=== PATIENT | male | born 1955 | race Caucasian/White ===

== ENCOUNTER 2018-08-18 16:03 | Emergency (ER) | payer OTHER ==
--- NOTE | 2018-08-18 16:45 | EDPHY ---
H & P Time Seen by Provider: 08/18/18 16:22 HPI/ROS: HPI Head injury. 63-year-old male by private vehicle. This patient was walking on a sidewalk. He tripped, fell forward and struck his left brow ridge on the pavement. He sustained a contusion over his left eye and involving his left brow ridge as well as 2 lacerations 1 over the eyebrow and 1 just above the eyebrow. No loss of consciousness. He has not been confused. No nausea or vomiting. No neck pain. Denies any other complaints. No loss of sensation or weakness in his extremities. No change in vision. No anticoagulation. He does take a daily aspirin. ROS: Constitutional: No fever, no chills. No weakness. Eyes: No discharge. No changes in vision. Respiratory: No cough. No shortness of breath. Cardiac: No chest pain, no palpitations. Gastrointestinal: No abdominal pain, no vomiting, no diarrhea. Musculoskeletal: No back pain. No neck pain. No extremity pain. Skin: No rashes. As above Neurological: No headache. No focal weakness or altered sensation. Past medical history: Hyperlipidemia. Social history: Nonsmoker. Here by himself. No alcohol. Physical Exam: General Appearance: Alert, no distress. This patient is responding to questions appropriately and in full sentences. This patient appears well- hydrated and well-nourished. Head: Normocephalic atraumatic except for a large egg sized hematoma involving the left upper lid and left brow ridge. There is a linear, non gaping laceration measuring approximately 2 cm running parallel with an inside the left eyebrow. There is a smaller 1.5 cm non gaping but somewhat macerated laceration just above the left mid eyebrow. No bony deformity noted on palpation. Face: Facial bones are stable on palpation. As above. Eyes: Pupils equal and round and reactive to light, no pallor or injection. No lid erythema or edema. ENT, Mouth: Mucous membranes moist. Dentition is intact. No malocclusion of the jaw. No tongue lacerations or abrasions. Pharynx is clear. The bilateral nasal canals are clear. No septal hematoma. Respiratory: There are no retractions, lungs are clear to auscultation with good air movement bilaterally. Chest wall is stable to AP and lateral palpation. Cardiovascular: Regular rate and rhythm. No murmur. Gastrointestinal: Abdomen is soft and nontender, no masses, bowel sounds normal. Neurological: Motor sensory function is intact. Cranial nerves are normal. Cerebellar function intact. Skin: Warm and dry, no rashes. No lacerations, abrasions or contusions. Musculoskeletal: Neck is supple and nontender. The trachea is midline. No midline cervical, thoracic, lumbar or sacral tenderness on palpation. No flank tenderness on palpation. Extremities are symmetrical, full range of motion. All joints in the bilateral upper and bilateral lower extremities range without pain or impingement. No tenderness on palpation of the long bones in the bilateral upper and bilateral lower extremities. Psychiatric: No agitation. No depression. Database: EKG: Imaging: CT head without contrast: Large left brow ridge hematoma. Otherwise no facial or orbital fracture. Brain normal. No skull fracture. Results were were discussed with staff radiologist Dr. Allen Raines. Procedures: Procedure: Laceration repair. Verbal consent was obtained from the patient. The 2 cm laceration on the left eyebrow was anesthetized in the usual fashion. The wound was irrigated, draped and explored to its base with a gloved finger. There were no deep structures involved. No tendon injury was identified. The wound was repaired with 8, 5.0 Ethilon sutures placed in interrupted fashion. The wound repair was tolerated well and there were no complications. The procedure was performed by myself. Procedure: Laceration repair. Verbal consent was obtained from the patient. The 1.5 cm laceration above the left eyebrow was anesthetized in the usual fashion. The wound was irrigated, draped and explored to its base with a gloved finger. There were no deep structures involved. No tendon injury was identified. The wound was repaired with 7, 6.0 Ethilon sutures placed in interrupted fashion. The wound repair was tolerated well and there were no complications. The procedure was performed by myself. Emergency department course: Triage vital signs reviewed. He is moderately hypertensive. Vital signs are otherwise normal. Results of his CT scan were discussed with him. After suture repair, wound care was discussed with the patient. Head injury precautions reviewed. All of his questions were answered. He feels comfortable going home. Follow-up and return to emergency department precautions reviewed he was discharged in good condition. Differential Diagnosis: The differential diagnosis on this patient includes but is not limited to head injury, left brow ridge contusion, facial laceration. Traumatic subarachnoid hemorrhage, facial fracture, subdural hematoma, epidural hematoma, cervical spine injury, other significant traumatic injury unlikely. This represents a partial list of diagnoses considered. These considerations are based on history , physical exam, past history, reassessment and diagnostic testing. Smoking Status: Never smoked Constitutional: Initial Vital Signs Temperature (C) 36.6 C 08/18/18 16:09 Heart Rate 69 08/18/18 16:09 Respiratory Rate 16 08/18/18 16:09 Blood Pressure 161/81 H 08/18/18 16:09 O2 Sat (%) 95 08/18/18 16:09 O2 Delivery Mode Room Air Allergies/Adverse Reactions: No Known Allergies Allergy (Verified 08/18/18 16:08) Home Medications: Medication Instructions Recorded Statin 01/09/10 Aspirin 81mg (*) 08/18/18 Fish Oil EC 1,200 mg Softgel 08/18/18 Medical Decision Making - Diagnostics Imaging Results: Imaging Impressions Head CT 08/18/18 16:40 Impression: 1. There is a large left vivian/supraorbital hematoma with an associated laceration, but no evidence of an abnormality of the left globe or the orbital rim. 2. There is no acute intracranial abnormality identified on this unenhanced CT evaluation. 3. Chronic paranasal sinus disease, as-detailed. If there is further clinical concern regarding the patient's symptoms, MR imaging is suggested, if not otherwise contraindicated. Findings will be conveyed to Ella Aguilar MD at 17:09, on 08/18/2018. Departure - Departure Disposition: Home, Routine, Self-Care Clinical Impression: Facial contusion, Face lacerations Condition: Good Instructions: Care For Your Stitches (ED), Laceration (ED), Head Injury (ED) Additional Instructions: Read and follow provided instructions. Follow-up with your primary care physician in 1-2 days for re-evaluation. Your stitches should be removed in 5-7 days. Return here to have that done. Ibuprofen dosin mg every 6 hours with meals for the next 3 days only. Take only as needed for pain. Return to the emergency department for worsening pain, bleeding, worsening headache, confusion, nausea and vomiting or other serious concerns. Referrals: Loyd Phillips, [Primary Care Provider] - As per Instructions
[2018-08-18 17:52] VITALS: BP 151/94
== END 2018-08-18 17:51 | disposition home or self-care (01) ==
LOC: CED 16:03
PROC: 0HQ1XZZ Repair Face Skin, External Approach (ICD-10-PCS; principal; 2018-08-18)
DX: S00.83XA Contusion of other part of head, initial encounter (principal); S01.81XA Laceration without foreign body of other part of head, initial encounter; W01.198A Fall on same level from slipping, tripping and stumbling with subsequent striking against other object, initial encounter; Y92.480 Sidewalk as the place of occurrence of the external cause
CPT/HCPCS: 70450-PO; 99284-ER